=== PATIENT | male | born 1985 | race Caucasian/White ===

== ENCOUNTER 2016-08-15 11:49 | Emergency (ER) | payer OTHER ==
[2016-08-15 11:57] VITALS: BP 134/92; RESP 18; TEMP 97.4; O2SAT 98
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
[2016-08-15 12:23] VITALS: PULSE 89
== END 2016-08-15 12:24 | disposition home or self-care (01) ==
LOC: C.ER 11:49
DX: S39.011A Strain of muscle, fascia and tendon of abdomen, initial encounter (principal); V49.9XXA Car occupant (driver) (passenger) injured in unspecified traffic accident, initial encounter

== ENCOUNTER 2017-01-11 14:02 | Emergency (ER) | payer MEDICAID, OTHER ==
[2017-01-11 14:10] VITALS: RESP 18; TEMP 98.4
[2017-01-11] MEDS ORDERED: Albuterol-Ipratrop 3 mg / 0.5 (3 ml) UD IH STA (15:11)
[2017-01-11] MEDS ORDERED: Sodium Chloride 0.9% 1,000 ML IV STA (15:11)
[2017-01-11 15:24] LABS: BASO # 0.1 K/uL (0.0-0.2); EOS # 0.2 K/uL (0.0-0.7); EOS % 3.2 % (0.0-4.0); HEMATOCRIT 46.7 % (35.0-51.0); LYMPH # 2.2 K/uL (1.0-4.3); LYMPH % 33.1 % (20.0-40.0); MEAN CORPUSCULAR HEMOGLOBIN 30.9 pg (27.0-31.0); MEAN CORPUSCULAR HGB CONC 34.4 g/dL (33.0-37.0); MEAN PLATELET VOLUME 8.8 fL (7.2-11.7); MONO # 0.4 K/uL (0.0-0.8); MONO % 6.2 % (0.0-10.0); RED CELL DISTRIBUTION WIDTH 13.1 % (11.5-14.5)
[2017-01-11 15:25] LABS: WHITE BLOOD COUNT 6.7 K/uL (4.8-10.8)
[2017-01-11 15:27] LABS: RBC URINE 2 /hpf (0-3); URINE BILIRUBIN NEGATIVE (NEGATIVE); URINE BLOOD NEGATIVE (NEGATIVE); URINE COLOR Yellow (YELLOW); URINE GLUCOSE (UA) NORMAL (Normal); URINE KETONE NEGATIVE (NEGATIVE); URINE LEUKOCYTE ESTERASE NEG Leu/uL (Negative); URINE PROTEIN NEGATIVE (NEGATIVE); WBC URINE 1 /hpf (0-5)
[2017-01-11 15:35] LABS: ALB/GLOB RATIO 1.2 (1.0-2.1); ALKALINE PHOSPHATASE 61 U/L (38-126); ALT/SGPT 80 U/L (21-72); AMYLASE 44 U/L (30-110); AST/SGOT 42 U/L (17-59); BILIRUBIN,TOTAL 1.3 mg/dL (0.2-1.3); BLOOD UREA NITROGEN 11 mg/dL (9-20); CALCIUM 9.2 mg/dl (8.6-10.4); CARBON DIOXIDE 24 mmol/L (22-30); CHLORIDE 101 mmol/L (98-107); GFR AFRICAN-AMERICAN > 60; GLUCOSE,RANDOM 96 mg/dL (75-110); POTASSIUM 3.6 mmol/L (3.6-5.2); SODIUM 139 mmol/L (132-148); TOTAL PROTEIN 7.2 g/dL (6.3-8.3)
--- NOTE | 2017-01-11 16:08 | C.PDOC ---
History Of Present Illness A 31 year old male, whose past medical history includes asthma, presents to the emergency department for cough and congestion, which began 3 days ago, and vomiting, which began 2 days ago. The patient reports whatever he eats he throws back up. He notes he has been seen for hip and groin pain in the past and was given Motrin to help with the pain. The patient has continued the use of Motrin and he believes the Motrin could be the cause of his nausea and vomiting. The patient denies any chest pain, back pain, fever, or any other complaints at this time. Time Seen by Provider: 01/11/17 14:16 Chief Complaint (Nursing): GI Problem History Per: Patient History/Exam Limitations: no limitations Onset/Duration Of Symptoms: Hrs (x 3 days ) Current Symptoms Are (Timing): Still Present Location Of Pain/Discomfort: Epigastric Past Medical History Vital Signs: Last Vital Signs Temp 98.4 F 01/11/17 14:08 Pulse 88 01/11/17 18:35 Resp 18 01/11/17 18:35 BP 127/88 01/11/17 18:35 Pulse Ox 95 01/11/17 19:21 - Medical History PMH: Asthma Denies: Chronic Kidney Disease Family History: States: No Known Family Hx, Unknown Family Hx - Social History Hx Tobacco Use: Yes Hx Alcohol Use: Yes Hx Substance Use: No - Immunization History Hx Tetanus Toxoid Vaccination: No Hx Influenza Vaccination: Yes Hx Pneumococcal Vaccination: No Review Of Systems Except As Marked, All Systems Reviewed And Found Negative. Constitutional: Negative for: Fever ENT: Positive for: Nose Congestion Cardiovascular: Negative for: Chest Pain Respiratory: Positive for: Cough Gastrointestinal: Positive for: Nausea, Vomiting, Abdominal Pain Musculoskeletal: Negative for: Back Pain Physical Exam - Physical Exam Appears: Well, Non-toxic, No Acute Distress Skin: Normal Color, Warm, Dry Head: Atraumatic, Normacephalic Eye(s): bilateral: Normal Inspection, PERRL, EOMI Nose: Normal Throat: Normal Neck: Normal Cardiovascular: Rhythm Regular Respiratory: Decreased Breath Sounds (bilaterally diffused decreased breath sounds ) Gastrointestinal/Abdominal: Tenderness (epigastric tenderness ) Back: Normal Inspection Extremity: Normal ROM Neurological/Psych: Oriented x3, Normal Speech, Normal Cognition ED Course And Treatment - Laboratory Results Result Diagrams: 01/11/17 15:18 01/11/17 15:18 O2 Sat by Pulse Oximetry: 95 Progress Note: On re-evaluation patient feels better, tolerates po and is stable to be d/c home. Medical Decision Making Medical Decision Making: Treatment Plan: -- Chest X-ray -- Albuterol/Ipratopium, Protonix, Zofran, IV Fluids -- Saline Lock -- Nebulizer, Peak Flow Pre/Post Tx Progress Notes: Disposition - Disposition Referrals: Beni Grande MD [Staff Provider] - Disposition: HOME/ ROUTINE Disposition Time: 18:59 Condition: STABLE Additional Instructions: Follow up with PMD within 1-2 days. Return to ED if feel worse. Prescriptions: predniSONE [predniSONE Tab] 2 tab PO DAILY #8 tab Albuterol HFA [Ventolin HFA 90 mcg/actuation (8 g)] 1 puff IH .Q4-6H #1 inhaler Ondansetron ODT [Zofran ODT] 4 mg PO .Q4-6H PRN #20 odt PRN Reason: Nausea/Vomiting Instructions: Asthma (ED), Gastroenteritis (ED) Forms: [employer] (Bengali) - Clinical Impression Clinical Impression: Gastroenteritis, Asthma exacerbation - Scribe Statement The provider has reviewed the documentation as recorded by the Scribe Malia Dueñas All medical record entries made by the Scribe were at my direction and personally dictated by me. I have reviewed the chart and agree that the record accurately reflects my personal performance of the history, physical exam, medical decision making, and the department course for this patient. I have also personally directed, reviewed, and agree with the discharge instructions and disposition.
[2017-01-11] MEDS ORDERED: Albuterol-Ipratrop 3 mg / 0.5 (3 ml) UD ONE (16:09)
--- NOTE | 2017-01-11 16:43 | RAD ---
HISTORY: cough/wheezing COMPARISON: Chest radiographs 10/04/2015 TECHNIQUE: Chest PA and lateral FINDINGS: LUNGS: No active pulmonary disease. Prior bilateral basilar atelectasis appears to have resolved. PLEURA: No significant pleural effusion identified. No pneumothorax apparent. CARDIOVASCULAR: Normal. OSSEOUS STRUCTURES: No significant abnormalities. VISUALIZED UPPER ABDOMEN: Normal. OTHER FINDINGS: None. IMPRESSION: No acute cardiopulmonary disease is identified at this time. Resolution of prior bilateral basilar infiltrates.
[2017-01-11 18:37] VITALS: BP 127/88; PULSE 88
--- NOTE | 2017-01-11 18:40 | US ---
EXAM: US Abdomen Limited, Right Upper Quadrant CLINICAL HISTORY: 31 years old, male; Pain; Abdominal pain; Epigastric; Additional info: Upper abd pain/vomiting TECHNIQUE: Real-time ultrasound of the right upper quadrant with image documentation. COMPARISON: No relevant prior studies available. FINDINGS: Liver: Fatty infiltration. No mass. No intrahepatic ductal dilatation. Gallbladder: No gallstones. No wall thickening. No pericholecystic fluid. No sonographic Vicente's sign. Common bile duct: No dilatation. No stones. Pancreas: Unremarkable as visualized. Right kidney: Normal echogenicity. No hydronephrosis. IMPRESSION: 1.No acute findings. 2.Non-acute findings are described above.
[2017-01-11 19:00] VITALS: O2SAT 95
== END 2017-01-11 19:06 | disposition home or self-care (01) ==
LOC: C.ER 14:02
DX: J45.901 Unspecified asthma with (acute) exacerbation (principal); K52.9 Noninfective gastroenteritis and colitis, unspecified
CPT/HCPCS: 71020; 76705; 80053; 81001; 82150; 83690; 85025; 94640; 96361; 96365; 96375; 99285; C9113; J2405; J2765; J7040